=== PATIENT | male | born 1985 | race Caucasian/White ===

== ENCOUNTER 2018-09-10 09:34 | Emergency (ER) | payer BC, OTHER ==
[2018-09-10] MEDS ORDERED: Sodium Chloride 0.9% 1,000 ML IV ONE (09:56)
[2018-09-10] MEDS ORDERED: Ketorolac 30 MG/ML SDV IVPUSH ONE (10:02)
[2018-09-10] MEDS ORDERED: Sodium Chloride 0.9% 2.5 ML Syringe FLUSH PRN (10:02)
[2018-09-10] MEDS ORDERED: Sodium Chloride 0.9% 10 ML Syringe FLUSH PRN (10:02)
--- NOTE | 2018-09-10 10:04 | EDM.PDOC ---
ED HPI GENERAL MEDICAL PROBLEM - General Chief Complaint: Genitourinary Problem Stated Complaint: SIDE PAIN Time Seen by Provider: 09/10/18 10:06 - History of Present Illness INITIAL COMMENTS - FREE TEXT/NARRATIVE: 33 y/o male here for left flank pain. States he has a history of kidney stones in the past. Woke up this morning with acute left flank pain around 7 am. No nausea or vomiting. Moderate pain, comes and goes on left flank area. Endorses urinary frequency and hesitancy. NO fevers, rashes. No history of STI's. Has been eating normally. No dysuria or hematuria. No change in bowel movements. No blood in stools. Denies chest pain, dyspnea. Left Flank Pain Score (Numeric/FACES): 4 - Related Data Allergies Allergy/AdvReac Type Severity Reaction Status Date / Time No Known Allergies Allergy Verified 09/10/18 09:42 Home Meds: Home Meds Cetirizine HCl [Zyrtec] 10 mg PO DAILY 09/10/18 [History] Fluticasone Propionate [Flonase] 16 mg PO DAILY 09/10/18 [History] Pseudoephedrine [Sudogest] 30 mg PO DAILY 09/10/18 [History] Tamsulosin HCl [Flomax] 0.4 mg PO DAILY 15 Days #15 cap.er.24h 09/10/18 [Rx] Past Medical History - Infectious Disease History Infectious Disease History: Reports: Chicken Pox - Past Surgical History Male Surgical History: Reports: Renal Calculus Social & Family History - Family History Family Medical History: Noncontributory - Tobacco Use Smoking Status *Q: Never Smoker Second Hand Smoke Exposure: No - Caffeine Use Caffeine Use: Reports: Coffee - Recreational Drug Use Recreational Drug Use: No ED ROS GENERAL - Review of Systems Review Of Systems: ROS reveals no pertinent complaints other than HPI. ED EXAM, RENAL/ - Physical Exam Exam: See Below General Appearance: Alert, WD/WN, No Apparent Distress Respiratory/Chest: No Respiratory Distress, Lungs Clear Cardiovascular: Normal Peripheral Pulses, Regular Rate, Rhythm, No Edema, No JVD GI/Abdominal: Normal Bowel Sounds, Soft, No Distention, Other (tender in LLQ. no rebound. Non tender in other quadrants.) Back Exam: Normal Inspection, Full Range of Motion. No: CVA Tenderness (L), CVA Tenderness (R) Extremities: Normal Inspection, No Pedal Edema Neurological: Alert, Oriented Course - Vital Signs Text/Narrative:: U/A, CBC, CMP, NS 1 liter, Tordaol 30 mg IV once. U/A shows hematuria. No UTI. ordered CT abdomen/pelvis wo contrast CT showed 3 mm stone at left ureterovesicular junction. Last Recorded V/S: Last Vital Signs Temp 36.3 C 09/10/18 09:43 Pulse 92 09/10/18 11:38 Resp 12 09/10/18 11:38 BP 122/85 09/10/18 11:38 Pulse Ox 97 09/10/18 11:38 - Orders/Labs/Meds Orders: Active Orders 24 hr Category Date Time Status Sodium Chloride 0.9% [Saline Flush] Med 09/10/18 10:02 Active 10 ml FLUSH ASDIRECTED PRN Sodium Chloride 0.9% [Saline Flush] Med 09/10/18 10:02 Active 2.5 ml FLUSH ASDIRECTED PRN Tamsulosin [Flomax] Med 09/10/18 11:39 Once 0.4 mg PO ONETIME ONE Saline Lock Insert [OM.PC] Stat Oth 09/10/18 10:01 Ordered Medication Orders Sodium Chloride (Saline Flush) 10 ml FLUSH ASDIRECTED PRN PRN Reason: Keep Vein Open Last Admin: 09/10/18 10:24 Dose: 10 ml Sodium Chloride (Saline Flush) 2.5 ml FLUSH ASDIRECTED PRN PRN Reason: Keep Vein Open Last Admin: 09/10/18 10:24 Dose: 2.5 ml Labs: Laboratory Tests 09/10/18 09/10/18 09/10/18 Range/Units 09:48 10:15 10:15 WBC 4.45 (4.0-11.0) K/uL RBC 5.14 (4.50-5.90) M/uL Hgb 15.5 (13.0-17.0) g/dL Hct 45.7 (38.0-50.0) % MCV 88.9 (80.0-98.0) fL MCH 30.2 (27.0-32.0) pg MCHC 33.9 (31.0-37.0) g/dL RDW Std Deviation 42.5 (28.0-62.0) fl RDW Coeff of [place] 13 (11.0-15.0) % Plt Count 219 (150-400) K/uL MPV 9.40 (7.40-12.00) fL Neut % (Auto) 70.0 (48.0-80.0) % Lymph % (Auto) 19.1 (16.0-40.0) % [place]pie % (Auto) 10.1 (0.0-15.0) % Eos % (Auto) 0.4 (0.0-7.0) % Baso % (Auto) 0.4 (0.0-1.5) % Neut # (Auto) 3.1 (1.4-5.7) K/uL Lymph # (Auto) 0.9 (0.6-2.4) K/uL Gillespie # (Auto) 0.5 (0.0-0.8) K/uL Eos # (Auto) 0.0 (0.0-0.7) K/uL Baso # (Auto) 0.0 (0.0-0.1) K/uL Nucleated RBC % 0.0 /100WBC Nucleated RBCs # 0 K/uL Sodium 141 (136-148) mmol/L Potassium 4.7 (3.5-5.1) mmol/L Chloride 105 (98-107) mmol/L Carbon Dioxide 25.6 (21.0-32.0) mmol/L BUN 13 (7.0-18.0) mg/dL Creatinine 1.0 (0.8-1.3) mg/dL Est Cr Clr Drug Dosing 115.32 mL/min Estimated GFR (MDRD) > 60.0 ml/min Glucose 109 H (74-106) mg/dL Calcium 9.3 (8.5-10.1) mg/dL Total Bilirubin 0.3 (0.2-1.0) mg/dL AST 21 (15-37) IU/L ALT 47 (14-63) IU/L Alkaline Phosphatase 60 (46-116) U/L Total Protein 7.9 (6.4-8.2) g/dL Albumin 4.2 (3.4-5.0) g/dL Globulin 3.7 (2.6-4.0) g/dL Albumin/Globulin Ratio 1.1 (0.9-1.6) Urine Color YELLOW Urine Appearance SLT CLOUDY Urine pH 6.0 (5.0-8.0) Ur Specific [place] 1.010 (1.001-1.035) Urine Protein NEGATIVE (NEGATIVE) mg/dL Urine Glucose (UA) NEGATIVE (NEGATIVE) mg/dL Urine Ketones NEGATIVE (NEGATIVE) mg/dL Urine Occult Blood LARGE H (NEGATIVE) Urine Nitrite NEGATIVE (NEGATIVE) Urine Bilirubin NEGATIVE (NEGATIVE) Urine Urobilinogen 0.2 (<2.0) EU/dL Ur Leukocyte Esterase NEGATIVE (NEGATIVE) Urine RBC 35-40 (0-2/HPF) Urine WBC 0-3 (0-5/HPF) Ur Epithelial Cells RARE (NONE-FEW) Urine Bacteria RARE (NEGATIVE) Meds: Medications Generic Name Dose Route Start Last Admin Trade Name Freq PRN Reason Stop Dose Admin Sodium Chloride 10 ml 09/10/18 10:02 09/10/18 10:24 Saline Flush FLUSH 10 ml ASDIRECTED PRN Administration Keep Vein Open Sodium Chloride 2.5 ml 09/10/18 10:02 09/10/18 10:24 Saline Flush FLUSH 2.5 ml ASDIRECTED PRN Administration Keep Vein Open Discontinued Medications Generic Name Dose Route Start Last Admin Trade Name Freq PRN Reason Stop Dose Admin Sodium Chloride 1,000 mls @ 999 mls/hr 09/10/18 09:56 09/10/18 10:24 Normal Saline IV 09/10/18 10:56 999 mls/hr STAT ONE Administration Ketorolac Tromethamine 30 mg 09/10/18 10:02 09/10/18 10:24 Toradol IVPUSH 09/10/18 10:03 30 mg ONETIME ONE Administration Methylprednisolone Sodium Succinate 125 mg 09/10/18 11:38 Solu-Medrol IVPUSH 09/10/18 11:39 ONETIME ONE Departure - Departure Time of Disposition: 11:46 Disposition: Home, Self-Care 01 Clinical Impression: Kidney stone, Ureterolithiasis - Discharge Information Prescriptions: Tamsulosin HCl [Flomax] 0.4 mg PO DAILY 15 Days #15 cap.er.24h Referrals: PCP,None [Primary Care Provider] - Forms: ED Department Discharge Additional Instructions: The following information is given to patients seen in the emergency department who are being discharged to home. This information is to outline your options for follow-up care. We provide all patients seen in our emergency department with a follow-up referral. The need for follow-up, as well as the timing and circumstances, are variable depending upon the specifics of your emergency department visit. If you don't have a primary care physician on staff, we will provide you with a referral. We always advise you to contact your personal physician following an emergency department visit to inform them of the circumstance of the visit and for follow-up with them and/or the need for any referrals to a consulting specialist. The emergency department will also refer you to a specialist when appropriate. This referral assures that you have the opportunity for follow-up care with a specialist. All of these measure are taken in an effort to provide you with optimal care, which includes your follow-up. Under all circumstances we always encourage you to contact your private physician who remains a resource for coordinating your care. When calling for follow-up care, please make the office aware that this follow-up is from your recent emergency room visit. If for any reason you are refused follow-up, please contact the [facility] Emergency Department at and asked to speak to the emergency department charge nurse. Follow-up with Urology. Stay hydrated and take Flomax daily until stone is out. You can catch stone and take to your follow-up with Urology. - My Orders Last 24 Hours: My Active Orders 09/10/18 10:01 Saline Lock Insert [OM.PC] Stat 09/10/18 10:02 Sodium Chloride 0.9% [Saline Flush] 10 ml FLUSH ASDIRECTED PRN Sodium Chloride 0.9% [Saline Flush] 2.5 ml FLUSH ASDIRECTED PRN 09/10/18 11:39 Tamsulosin [Flomax] 0.4 mg PO ONETIME ONE - Assessment/Plan Last 24 Hours: My Active Orders 09/10/18 10:01 Saline Lock Insert [OM.PC] Stat 09/10/18 10:02 Sodium Chloride 0.9% [Saline Flush] 10 ml FLUSH ASDIRECTED PRN Sodium Chloride 0.9% [Saline Flush] 2.5 ml FLUSH ASDIRECTED PRN 09/10/18 11:39 Tamsulosin [Flomax] 0.4 mg PO ONETIME ONE
[2018-09-10 10:53] LABS: CHLORIDE,CL 105 mmol/L (98-107); SODIUM,NA 141 mmol/L (136-148)
--- NOTE | 2018-09-10 11:34 | CT ---
CT of the abdomen and pelvis without contrast. HISTORY: Pain TECHNIQUE: Axial CT images were obtained of the abdomen and pelvis without contrast. Coronal and sagittal reconstructions obtained. FINDINGS: The lung bases are clear, no pleural effusion. There is moderate fatty infiltration of the liver. The spleen, adrenal glands, and pancreas appear unremarkable for noncontrast examination. The gallbladder appears normal. There is no bulky retroperitoneal lymphadenopathy. No abdominal ascites. Minimal fat-containing umbilical hernia. There is a 3 mm stone at the left ureterovesicular junction with mild proximal hydronephrosis. Additional small nonobstructing nephrolithiasis bilaterally. The large and small bowel are normal in caliber without evidence of obstruction. The appendix appears normal. There is no bulky pelvic lymphadenopathy. No free fluid. No free air. The urinary bladder appears normal. The visualized osseous structures appear normal. IMPRESSION: 1. There is a 3 mm stone at the left ureterovesicular junction with mild proximal hydronephrosis. 2. Small nonobstructing of lithiasis. 3. Fatty infiltration of the liver.
[2018-09-10] MEDS ORDERED: methylPREDNISolone Sodium Succinate 125 MG/2 ML SDV IVPUSH ONE (11:38)
[2018-09-10] MEDS ORDERED: Tamsulosin 0.4 MG Cap.ER PO ONE (11:39)
== END 2018-09-10 12:20 | disposition home or self-care (01) ==
LOC: MW.ED 09:34
DX: N13.2 Hydronephrosis with renal and ureteral calculous obstruction (principal); Z79.899 Other long term (current) drug therapy
CPT/HCPCS: 36415; 74176; 80053; 81001; 85025; 96361; 96374; 96375; 99284; A9270; J1885; J2930; J7040